=== PATIENT | female | born 1990 | race Caucasian/White ===

== ENCOUNTER → 2020-10-14 | Outpatient (CLI) | payer OTHER ==
[~2020-10-14] MED LIST: COLACE 100MG C100 MG PO; FERROUS SULFAT325 M2 PO; IBUPROFEN600 MG PO; LORTAB 5-325 M1 EACH PO; NORCO 5-325 TA1 EACH PO
[2020-10-14 19:19] LABS: BUN/CREATININE RATIO 21 (0-10)
== END ==
LOC: LAB 17:52
PROVIDERS: Nurse Practitioner
DX: E89.0 Postprocedural hypothyroidism (principal); E20.9 Hypoparathyroidism, unspecified
CPT/HCPCS: 80069; 84443

== ENCOUNTER → 2021-04-26 | Outpatient (CLI) | payer OTHER ==
[2021-04-26 17:56] LABS: BUN/CREATININE RATIO 13 (0-10)
== END ==
LOC: LAB 16:54
PROVIDERS: Internal Medicine
DX: E89.0 Postprocedural hypothyroidism (principal); E20.9 Hypoparathyroidism, unspecified
CPT/HCPCS: 36415; 80069; 82330; 83970; 84443

== ENCOUNTER → 2021-08-24 | Outpatient (CLI) | payer OTHER ==
[2021-08-24 18:05] LABS: BUN/CREATININE RATIO 14 (0-10)
== END ==
LOC: LAB 17:23
PROVIDERS: Internal Medicine
DX: E89.0 Postprocedural hypothyroidism (principal); E20.9 Hypoparathyroidism, unspecified
CPT/HCPCS: 80069; 84439; 84443

== ENCOUNTER → 2022-02-05 | Outpatient (CLI) | payer OTHER | LOC: LAB 18:22 | PROVIDERS: Internal Medicine | DX: E89.0 Postprocedural hypothyroidism (principal); E20.9 Hypoparathyroidism, unspecified | CPT/HCPCS: 80069; 82330; 83970; 84443 ==

== ENCOUNTER 2022-02-19 14:34 | Emergency (ER) | payer OTHER ==
[2022-02-19 15:46] LABS: HEMOGLOBIN 14.5 gm/dl (12.3-15.3); RED BLOOD COUNT 5.04 M/UL (4.00-5.10); WHITE BLOOD COUNT 6.1 K/UL (4.5-11.0)
[2022-02-19 16:10] LABS: BUN/CREATININE RATIO 13 (0-10)
== END 2022-02-19 19:10 | disposition home or self-care (01) ==
LOC: ER1 14:34
PROVIDERS: Preventive Medicine Occupational Medicine
DX: G40.909 Epilepsy, unspecified, not intractable, without status epilepticus (principal)
CPT/HCPCS: 70450; 80053; 85025; 93005; 96374; 96375; 99284; J1885; J1953